=== PATIENT | male | born 1965 | race Caucasian/White ===

== ENCOUNTER 2018-10-16 09:41 | Emergency (ER) | payer OTHER ==
[2018-10-16] MEDS ORDERED: Ketorolac Tromethamine 60 MG/2 ML VIAL ONE (10:24)
--- NOTE | 2018-10-16 11:20 | RAD ---
RIGHT KNEE 4 VIEWS: Date: 10/16/18 HISTORY: Injury to right lower extremity with pain. FINDINGS: There are mild to moderate degenerative changes at the right knee. Spurring from the tibial and femor al condyles. Spurring from the tibial spines. Spurring from the posterior patella. No fracture. No si gnificant joint effusion. IMPRESSION: Moderate degenerative changes right knee. POS: [facility]
--- NOTE | 2018-10-16 11:22 | RAD ---
RIGHT FEMUR 2 VIEWS: Date: 10/16/18 HISTORY: Injured leg. FINDINGS: There are arthritic changes of the hip. 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 Ther e are also arthritic changes noted of the knee. Moderate medial compartment degenerative change and a lso patellofemoral changes. There are no signs of fracture. IMPRESSION: No evidence of fracture. POS: [facility]
== END 2018-10-16 11:19 | disposition home or self-care (01) ==
LOC: ERS 09:41
DX: S76.311A Strain of muscle, fascia and tendon of the posterior muscle group at thigh level, right thigh, initial encounter (principal); S73.101A Unspecified sprain of right hip, initial encounter; F17.220 Nicotine dependence, chewing tobacco, uncomplicated; E78.5 Hyperlipidemia, unspecified; Z79.899 Other long term (current) drug therapy; X58.XXXA Exposure to other specified factors, initial encounter
CPT/HCPCS: 96372; J1885

== ENCOUNTER 2019-09-22 21:21 | Emergency (ER) | payer OTHER ==
[2019-09-22] MEDS ORDERED: predniSONE 20 MG TAB ONE (21:58)
== END 2019-09-22 22:08 | disposition home or self-care (01) ==
LOC: ERS 21:21
DX: M54.5 Low back pain (principal); E78.5 Hyperlipidemia, unspecified; F17.220 Nicotine dependence, chewing tobacco, uncomplicated; Z79.899 Other long term (current) drug therapy
CPT/HCPCS: 99283; J7512

== ENCOUNTER 2020-04-17 06:18 | Outpatient (CLI) | payer OTHER ==
[2020-04-17 15:08] LABS: Anion Gap 15 mmol/L (10-20); BUN (Urea Nitrogen) 11 mg/dL (8.4-25.7); Calc. Creatinine Clearance 0 mL/min (70-130); Calcium 9.3 mg/dL (7.8-10.44); Carbon Dioxide 22 mmol/L (22-29); Chloride 105 mmol/L (98-107); Estimated GFR-MDRD 63; Glucose 124 mg/dL (70-105); Potassium 4.2 mmol/L (3.5-5.1); Sodium 138 mmol/L (136-145)
[2020-04-17 15:09] LABS: Hemoglobin 15.1 g/dL (14.0-18.0); Mean Corpuscular HGB CONC 33.8 g/dL (32.0-36.0); Mean Corpuscular Hemoglobin 31.6 pg (27.0-31.0); Mean Corpuscular Volume 93.5 fL (78.0-98.0); Platelet Count 237 thou/uL (130-400); RBC Distribution Width 11.8 % (11.5-14.5); Red Blood Cell (RBC) Count 4.79 mill/uL (4.70-6.10); White Blood Cell (WBC) Count 7.2 thou/uL (4.8-10.8)
[2020-04-17 15:10] LABS: Band 1 % (5-11); Eosinophils 2 % (0-10); Lymphocytes 60 % (21-51); MDiff Complete? YES; Monocytes 7 % (0-10); Neutrophil 22 % (42-75); Platelet Morphology Comment Appears Adequate; RBC Morphology Normal; Reactive Lymphocytes 8 % (0-10)
[2020-04-18 11:35] LABS: SARS-CoV-2 MS2 Positive; SARS-CoV-2 N Gene Negative; SARS-CoV-2 S Gene Negative; SARS-CoV-2 by NAA Not Detected (NotDetected); SARS-CoV-2 orf1ab Negative
--- NOTE | 2020-04-18 14:50 | EKG ---
Test Reason : PREOP Blood Pressure : / mmHG Vent. Rate : 088 BPM Atrial Rate : 088 BPM P-R Int : 160 ms QRS Dur : 086 ms QT Int : 360 ms P-R-T Axes : 029 042 065 degrees QTc Int : 435 ms Normal sinus rhythm Normal ECG No previous ECGs available Confirmed by GIOVANA SOMERS (2) on 04/18/2020 2:50:28 PM Referred By: Dahlia HAMMER Confirmed By:GIOVANA SOMERS
== END 2020-04-17 06:19 | disposition home or self-care (01) ==
LOC: LABBT 06:18
PROVIDERS: ATTEND Specialist
DX: Z01.818 Encounter for other preprocedural examination (principal); Z20.828 Contact with and (suspected) exposure to other viral communicable diseases; K42.9 Umbilical hernia without obstruction or gangrene
CPT/HCPCS: 80048; 85025; 87635; 93005; 93010; U0003

== ENCOUNTER 2020-04-20 07:27 | Day surgery (SDC) | payer OTHER ==
[2020-04-19 13:06] VITALS: BMI 35.5
[2020-04-20] MEDS ORDERED: Ketorolac Tromethamine 30 MG/ML VIAL ONE (07:40)
[2020-04-20] MEDS ORDERED: Acetaminophen 500 MG TAB ONE (07:40)
[2020-04-20] MEDS ORDERED: Midazolam HCl 2 mg/2 ml Vial ONE (10:31)
[2020-04-20] MEDS ORDERED: Bupivacaine/Epinephrine 0.25% 30 ML VIAL ONE ×2 (10:38→11:01)
[2020-04-20] MEDS ORDERED: Fentanyl 100 MCG/2 ML VIAL ONE ×2 (10:44)
[2020-04-20] MEDS ORDERED: Glycopyrrolate 0.2 MG/ML 5 ML SYRINGE ONE (11:33)
[2020-04-20] MEDS ORDERED: PHENYLEPHRINE-NS 100 MCG/ML 10 ML SYRINGE ONE (11:33)
[2020-04-20] MEDS ORDERED: Dexamethasone 20 MG/5 ML VIAL ONE (11:33)
[2020-04-20] MEDS ORDERED: Ondansetron PF 4 MG/2 ML Vial ONE (11:33)
[2020-04-20] MEDS ORDERED: PROPOFOL 200 MG/20 ML VIAL ONE (11:33)
[2020-04-20] MEDS ORDERED: Rocuronium Bromide 10 MG/ML (10ML VIAL) ONE (11:33)
[2020-04-20] MEDS ORDERED: Lidocaine 1% PF 5 ML VIAL ONE (11:33)
--- NOTE | 2020-04-21 09:35 | OP ---
DATE OF PROCEDURE: 04/20/2020 PREOPERATIVE DIAGNOSIS: Umbilical hernia. POSTOPERATIVE DIAGNOSIS: Umbilical hernia. PROCEDURE PERFORMED: Umbilical hernia repair with mesh using a 4.3 cm Ventralex mesh patch. ANESTHESIA: General endotracheal. INDICATIONS: The patient is a 54-year-old white male. He presents with an obvious symptomatic umbilical hernia and repair is recommended. DESCRIPTION OF OPERATION: Informed consent was obtained. The patient was taken to the operating room, where general anesthesia was obtained with the patient in supine position. Abdomen was prepped with ChloraPrep and draped in sterile fashion. Local anesthetic was infiltrated using 0.25% Marcaine with epinephrine. A curvilinear infraumbilical incision was created and dissection was carried down to the fascia. The patient had a fairly thin layer of subcutaneous fat (relative to his intraabdominal obesity). Dissection was carried around the umbilicus and the hernia sac. The umbilicus was then dissected off the hernia sac and the abdominal wall and reflected superiorly. All hernia contents were fatty. The hernia defect was circumscribed and all contents were replaced into the abdominal cavity. The fascia was cleared anteriorly and posteriorly. A 4.3 cm Ventralex mesh patch was obtained and placed within the preperitoneal space, where it was pulled snug against the posterior aspect of the fascia. The mesh tails were secured to the anterior fascia superiorly and inferiorly with single interrupted sutures of 0 Prolene. The lateral aspects of the defect were closed, incorporating bites of the anterior leaflet of the mesh with additional interrupted Prolene sutures. The umbilicus was secured down to the fascia with 2 interrupted sutures of 3-0 Vicryl. The remainder of the wound was closed in layers with 3-0 and 4-0 Monocryl. Additional local anesthetic was instilled in the wound during closure. Dermabond was placed externally. A compression dressing was created of cotton balls and a Tegaderm. There were no complications and essentially no blood loss during the course of the operation. The patient tolerated the procedure well and was taken to the recovery room in stable condition. Job ID: [id number]
== END 2020-04-20 14:10 | disposition home or self-care (01) ==
LOC: SDC 07:27
PROVIDERS: ATTEND Specialist
PROC: 0WUF0JZ Supplement Abdominal Wall with Synthetic Substitute, Open Approach (ICD-10-PCS; principal; 2020-04-20)
DX: K42.9 Umbilical hernia without obstruction or gangrene (principal); F17.290 Nicotine dependence, other tobacco product, uncomplicated; E66.9 Obesity, unspecified; Z68.35 Body mass index [BMI] 35.0-35.9, adult; Z79.899 Other long term (current) drug therapy
CPT/HCPCS: J0690; J1100; J1885; J2250; J2405; J2704; J3010

== ENCOUNTER 2020-11-16 15:34 | Outpatient (CLI) | payer BC | END 2020-11-16 15:35 | disposition home or self-care (01) | LOC: BICULT 15:34 | PROVIDERS: ATTEND Nurse Practitioner Family | DX: E05.90 Thyrotoxicosis, unspecified without thyrotoxic crisis or storm (principal); E07.89 Other specified disorders of thyroid | CPT/HCPCS: 76536 ==

== ENCOUNTER 2022-05-13 12:59 | Outpatient (CLI) | payer BC ==
[2022-05-13 13:59] LABS: Anion Gap 14 mmol/L (10-20); BUN (Urea Nitrogen) 12 mg/dL (8.4-25.7); Calc. Creatinine Clearance 0 mL/min (70-130); Calcium 9.5 mg/dL (7.8-10.44); Carbon Dioxide 26 mmol/L (22-29); Chloride 102 mmol/L (98-107); Estimated GFR 76; Glucose 97 mg/dL (70-105); Sodium 138 mmol/L (136-145)
[2022-05-13 14:04] LABS: Hemoglobin 14.8 g/dL (13.5-17.5); Mean Corpuscular HGB CONC 34.1 g/dL (32.0-36.0); Mean Corpuscular Hemoglobin 30.8 pg (27.0-33.0); Mean Corpuscular Volume 90.4 fl (81.2-95.1); Mean Platelet Volume 9.7 fl (7.4-10.4); Platelet Count 235 10x3/uL (150-450); RBC Distribution Width 12.6 % (11.5-14.5); White Blood Cell (WBC) Count 7.4 10x3/uL (3.5-10.5)
[2022-05-13 14:06] LABS: MDiff Complete? YES
[2022-05-13 15:04] LABS: Eosinophils 1 % (0-10); Lymphocytes 57 % (21-51); Monocytes 6 % (0-10); Neutrophil 36 % (42-75)
[2022-05-13 15:06] LABS: Platelet Morphology Comment Appears Adequate
[2022-05-13 15:07] LABS: RBC Morphology Normal
== END 2022-05-13 13:00 | disposition home or self-care (01) ==
LOC: LABBT 12:59
PROVIDERS: ATTEND Specialist
DX: Z01.812 Encounter for preprocedural laboratory examination (principal); K40.20 Bilateral inguinal hernia, without obstruction or gangrene, not specified as recurrent
CPT/HCPCS: 80048; 85025

== ENCOUNTER 2022-05-16 08:03 | Day surgery (SDC) | payer BC ==
[2022-05-15 11:19] VITALS: BMI 32.3
[~2022-05-16 08:03] MED LIST: Dexamethasone 20 MG/5 ML VIAL ONE; Ondansetron PF 4 MG/2 ML Vial ONE; PROPOFOL 200 MG/20 ML VIAL ONE; Rocuronium Bromide 10 MG/ML (10ML VIAL) ONE
[2022-05-16] MEDS ORDERED: Ketorolac Tromethamine 30 MG/ML VIAL ONE (09:40)
[2022-05-16] MEDS ORDERED: Acetaminophen 500 MG TAB ONE (09:40)
[2022-05-16] MEDS ORDERED: Bupivacaine/Epinephrine 0.25% 30 ML VIAL ONE (10:36)
[2022-05-16] MEDS ORDERED: CEFAZOLIN 2 GM VIAL ONE (12:32)
[2022-05-16] MEDS ORDERED: Sodium Chloride 0.9% 100 ML ONE (12:32)
[2022-05-16] MEDS ORDERED: fentaNYL PF 100 MCG/2 ML SYRINGE ONE (12:40)
[2022-05-16] MEDS ORDERED: SUGAMMADEX SODIUM 200 MG/2 ML VIAL ONE (12:40)
[2022-05-16] MEDS ORDERED: FENTANYL 50 MCG/ML 1 ML VIAL ONE ×2 (14:46→15:11)
== END 2022-05-16 16:43 | disposition home or self-care (01) ==
LOC: SDC 08:03
PROVIDERS: ATTEND Specialist
PROC: 0YUA4JZ Supplement Bilateral Inguinal Region with Synthetic Substitute, Percutaneous Endoscopic Approach (ICD-10-PCS; principal; 2022-05-16)
PROC: 8E0W4CZ Robotic Assisted Procedure of Trunk Region, Percutaneous Endoscopic Approach (ICD-10-PCS; principal; 2022-05-16)
DX: K40.20 Bilateral inguinal hernia, without obstruction or gangrene, not specified as recurrent (principal); K66.0 Peritoneal adhesions (postprocedural) (postinfection); D17.6 Benign lipomatous neoplasm of spermatic cord; F17.290 Nicotine dependence, other tobacco product, uncomplicated; Z79.899 Other long term (current) drug therapy
CPT/HCPCS: C1781; J1100; J1885; J2405; J2704; J3010; J3490

== ENCOUNTER 2023-12-11 09:47 | Emergency (ER) | payer BC, OTHER ==
[2023-12-11] MEDS ORDERED: Ketorolac Tromethamine 30 MG (1 mL) VIAL ONE (10:23)
[2023-12-11 10:35] LABS: #Basophils 0.03 10x3/uL (0.0-0.2); %Basophils 0.4 % (0.0-1.0); %Eosinophils 0.6 % (0.0-10.0); %Lymphocytes 23.1 % (21.0-51.0); %Monocytes 7.1 % (0.0-10.0); %Neutrophils 68.4 % (42.0-75.0); Hematocrit 41.8 % (42.0-52.0); Hemoglobin 14.1 g/dL (14.0-18.0); Mean Corpuscular HGB CONC 33.7 g/dL (32.0-36.0); Mean Corpuscular Hemoglobin 32.3 pg (27.0-31.0); Mean Corpuscular Volume 95.7 fL (78.0-98.0); Mean Platelet Volume 9.4 fL (7.4-10.4); Platelet Count 212 10x3/uL (130-400); RBC Distribution Width 13.1 % (11.5-14.5); Red Blood Cell (RBC) Count 4.37 mill/uL (4.70-6.10)
[2023-12-11 10:50] LABS: ALT (SGPT) 19 U/L (8-55); AST (SGOT) 29 U/L (5-34); Alkaline Phosphatase 50 U/L (40-110); Anion Gap 11 mmol/L (10-20); BUN (Urea Nitrogen) 11 mg/dL (8.4-25.7); Bilirubin, Total 0.7 mg/dL (0.2-1.2); Calc. Creatinine Clearance 0 mL/min (70-130); Calcium 8.9 mg/dL (7.8-10.44); Carbon Dioxide 22 mmol/L (22-29); Chloride 107 mmol/L (98-107); Estimated GFR 87; Glucose 90 mg/dL (70-105); Potassium 3.8 mmol/L (3.5-5.1); Sodium 136 mmol/L (136-145)
[2023-12-11 11:00] LABS: Troponin I Less than 0.010 ng/mL (< 0.028)
== END 2023-12-11 11:58 | disposition home or self-care (01) ==
LOC: ERS 09:47
DX: E86.0 Dehydration (principal); F17.220 Nicotine dependence, chewing tobacco, uncomplicated
CPT/HCPCS: 36415; 71045; 80053; 83880; 84484; 85025; 93005; 96361; 96374; J1885